=== PATIENT | female | born 1935 | race Caucasian/White ===

== ENCOUNTER 2017-11-19 05:44 | Day surgery (SDC) | payer MEDICARE, OTHER ==
[2017-11-19] MEDS ORDERED: LACTATED RINGER'S 1,000 ML IV* (06:00)
[2017-11-19 07:38] LABS: INR 0.94; PROTIME 12.7 Sec (11.9-14.9)
[2017-11-19 07:39] LABS: PARTIAL THROMBOPLASTIN TIME 28.9 Sec (25.0-35.0)
[2017-11-19] MEDS ORDERED: MIDAZOLAM 1 MG/ML 2 ML INJ (07:49)
[2017-11-19] MEDS ORDERED: BUPIVACAINE 0.5% (SDV) 30 ML INJ (08:01)
[2017-11-19] MEDS ORDERED: LIDOCAINE 1% (MPF) 30 ML INJ (08:01)
[2017-11-19] MEDS: POLYMYXIN/BACITRACIN 1L IRRIG (08:26)
[2017-11-19] MEDS ORDERED: ETOMIDATE 20 MG INJ (09:44)
[2017-11-19] MEDS ORDERED: ONDANSETRON 4 MG INJ (09:44)
[2017-11-19] MEDS ORDERED: ROPIVACAINE 0.5 % 30 ML VIAL (09:44)
[2017-11-19] MEDS ORDERED: CEFAZOLIN 1 GM INJ (09:44)
[2017-11-19] MEDS ORDERED: METOCLOPRAMIDE 10 MG INJ (09:44)
[2017-11-19] MEDS ORDERED: LIDOCAINE 2% (SDV) 5 ML INJ (09:44)
[2017-11-19] MEDS ORDERED: ONDANSETRON 4 MG INJ IV (10:30)
[2017-11-19] MEDS ORDERED: hydrALAzine 20 MG INJ IV (10:30)
[2017-11-19] MEDS ORDERED: MEPERIDINE 25 MG INJ IV (10:30)
[2017-11-19] MEDS ORDERED: DIPHENHYDRAMINE 50 MG INJ IV (10:30)
[2017-11-19] MEDS ORDERED: HYDROmorphONE (0.2 MG/ML) 10ML SYG IV ×2 (10:30)
[2017-11-19] MEDS ORDERED: OXYCODONE/ACETAMINOPHEN (5/325) TAB PO (10:30)
[2017-11-19] MEDS ORDERED: METOCLOPRAMIDE 10 MG INJ IV (10:30)
[2017-11-19] MEDS ORDERED: FENTAnyl 50 MCG/ML VIAL IV (10:30)
== END 2017-11-19 14:02 | disposition home or self-care (01) ==
LOC: SDS 05:44
DX: S52.571D Other intraarticular fracture of lower end of right radius, subsequent encounter for closed fracture with routine healing (principal); X58.XXXD Exposure to other specified factors, subsequent encounter; G56.01 Carpal tunnel syndrome, right upper limb; J44.9 Chronic obstructive pulmonary disease, unspecified
CPT/HCPCS: 25608; 71045; 73110-RT; 85610; 85730